=== PATIENT | female | born 1960 | race Caucasian/White ===

== ENCOUNTER → 2022-01-28 | Day surgery (SDC) | payer OTHER ==
[~2022-01-28] VITALS: Ht 152.4 cm; Wt 83.5 kg
[~2022-01-28] MED LIST: ALLEGRA ALLERG180 MG PO; BISOPROLOL-HCT1 EAC1 PO; DOXEPIN HCL75 MG PO; ESTRADIOL1 MG PO; FARXIGA10 MG PO; JARDIANCE25 MG PO; LEVOTHYROXINE125 MCG PO; METFORMIN HCL500 MG PO; MONTELUKAST SOD10 MG PO; OMEPRAZOLE 20MG20 MG PO; PERCOCET 5-3251 EACH PO; PRILOSEC20 MG PO; SINGULAIR10 MG PO; SYNTHROID150 MCG PO; VICTOZA SC; VITAMIN B-121000 MC1 PO; ZOCOR20 MG PO
== END | disposition home or self-care (01) ==
LOC: FAS 07:21
DX: G89.29 Other chronic pain (principal); R10.12 Left upper quadrant pain; K31.7 Polyp of stomach and duodenum; K31.9 Disease of stomach and duodenum, unspecified; K29.50 Unspecified chronic gastritis without bleeding; K44.9 Diaphragmatic hernia without obstruction or gangrene; K59.00 Constipation, unspecified; R19.7 Diarrhea, unspecified; R14.3 Flatulence; R14.0 Abdominal distension (gaseous); E11.9 Type 2 diabetes mellitus without complications; I10 Essential (primary) hypertension; E66.9 Obesity, unspecified; K21.00 Gastro-esophageal reflux disease with esophagitis, without bleeding; E78.5 Hyperlipidemia, unspecified; E03.9 Hypothyroidism, unspecified; Z90.49 Acquired absence of other specified parts of digestive tract; Z90.710 Acquired absence of both cervix and uterus
CPT/HCPCS: J7120